=== PATIENT | male | born 1995 | race African-American/Black ===

== ENCOUNTER 2024-10-08 07:07 | Day surgery (SDC) | payer OTHER ==
[2024-10-07 09:17] VITALS: BMI 27.1
[2024-10-08] MEDS ORDERED: LIDOCAINE 1%/EPI 1:100000 (20 ML MULTI DOSE VIAL) ONE ×2 (07:35→09:45)
[2024-10-08] MEDS ORDERED: SUCCINYLCHOLINE CHLORIDE 200 MG/10 ML SYRINGE ONE (09:03)
[2024-10-08] MEDS ORDERED: PROPOFOL 20 ML ONE ×2 (09:03→10:39)
[2024-10-08] MEDS ORDERED: MIDAZOLAM HCL 2 MG/2 ML SINGLE DOSE VIAL ONE ×2 (09:04→09:05)
[2024-10-08] MEDS ORDERED: REMIFENTANIL (ULTIVA) HCL 1 MG VIAL ONE (09:09)
[2024-10-08] MEDS ORDERED: BUPIVACAINE HCL/PF 0.25% (2.5MG/ML) 10 ML VIAL ONE (09:13)
[2024-10-08] MEDS ORDERED: ALBUTEROL SO4 HFA INHALER IH ONE (09:23)
[2024-10-08] MEDS ORDERED: BUPIVACAINE HCL/PF 0.5% (5MG/ML) 10 ML VIAL ONE (09:45)
[2024-10-08] MEDS ORDERED: LIDOCAINE HCL/PF 2% SDV 5ML VIAL ONE (10:06)
[2024-10-08] MEDS ORDERED: HYDROmorphone HCl 2 MG/ML VIAL ONE (10:15)
[2024-10-08] MEDS ORDERED: ceFAZolin SODIUM 1 GM VIAL ONE (10:18)
[2024-10-08] MEDS: ceFAZolin SODIUM 1 GM VIAL IVPB ONE (10:20)
[2024-10-08] MEDS ORDERED: DEXAMETHASONE SOD PHOSPHATE 4 MG/1 ML VIAL ONE (10:36)
[2024-10-08] MEDS ORDERED: ONDANSETRON 4 MG/2 ML VIAL ONE (10:36)
[2024-10-08] MEDS: BUPIVACAINE HCL/PF 0.25% (2.5MG/ML) 10 ML VIAL IJ ONE (12:09)
[2024-10-08] MEDS: LIDOCAINE 1%/EPI 1:100000 (20 ML MULTI DOSE VIAL) IJ ONE (12:09)
[2024-10-08] MEDS ORDERED: BACITRACIN ZINC 15 GM TUBE TOPICAL OINTMENT ONE (12:13)
[2024-10-08] MEDS: BACITRACIN ZINC 15 GM TUBE TOPICAL OINTMENT TP ONE (12:14)
[2024-10-08] MEDS ORDERED: oxyCODONE HCL 5 MG TABLET PO PRN ×2 (14:25)
[2024-10-08] MEDS: ACETAMINOPHEN 1000 MG/100 ML BAG IVPB ONE (14:25)
[2024-10-08] MEDS ORDERED: PROMETHAZINE HCL 25 MG/1 ML VIAL IVPB PRN (14:25)
[2024-10-08] MEDS ORDERED: ONDANSETRON 4 MG/2 ML VIAL IVPUSH PRN (14:25)
[2024-10-08] MEDS ORDERED: LACTATED RINGERS SOLUTION 1,000 ML IV SCH (14:30)
[2024-10-08 15:36] VITALS: RESP 18
[2024-10-08 16:38] VITALS: BP 150/73; PULSE 89; TEMP 97.1
== END 2024-10-08 16:20 | disposition home or self-care (01) ==
LOC: JASU-SURG 07:07
PROVIDERS: ATTEND Surgery
PROC: 0CT80ZZ Resection of Right Parotid Gland, Open Approach (ICD-10-PCS; principal; 2024-10-08 10:39)
DX: D11.0 Benign neoplasm of parotid gland (principal)
CPT/HCPCS: 86850; 86900; 86901; 88307-TC; 94760